=== PATIENT | male | born 1995 | race Caucasian/White ===

== ENCOUNTER 2017-02-20 13:09 | Emergency (ER) | payer SELFPAY ==
[2017-02-20 13:20] VITALS: BP 127/63
--- NOTE | 2017-02-20 14:07 | ERNOTE ---
Lower Extremity HPI - Narrative Date of Service: 02/20/17 - General Lower Extremities Pain: foot: right - patient c/op warts on feet was to see dermatology Time Seen by Provider: 02/20/17 13:43 Source: patient Exam Limitations: no limitations - patient also c/o cough and sore throat - Immun/Allergies/Home Medications Immunizations: IMMUNIZATION HX Immunizations Up to Date Yes History of Influenza Vaccine Yes Hx Pneumococcal Vaccination Yes Allergies/Adverse Reactions: Allergies Allergy/AdvReac Type Severity Reaction Status Date / Time No Known Allergies Allergy Unverified 02/20/17 13:21 Home Medications: HOME MEDICATIONS Amoxicillin Trihydrate [Amoxil] 500 mg PO Q8H #30 capsule 02/20/17 [Last Taken Unknown] - History of Present Illness Narrative: sore throat and cough onset several days ago, warts on bottoom of feet have been ongoing Occurred: yesterday Location of Incident: other - no known injury Method of Injury: Reports: other - no injury Loss of Consciousness: Reports: no loss of consciousness Modifying Factors - (Improves): Reports: rest Modifying Factors - (Worsens): Reports: movement Associated Symptoms: Reports: none Other Injuries: Reports: none Review of Systems - Review of Systems Constitutional: Present: See HPI, fever, chills, fatigue EYE: Present: no symptoms reported ENT: Present: nose congestion, sore throat, throat swelling Respiratory: Present: cough Cardiology: Present: no symptoms reported Gastrointestinal/Abdominal: Present: no symptoms reported Genitourinary: Present: no symptoms reported Musculoskeletal: Present: no symptoms reported Skin: Present: other - plantar warts on both feet Neurological: Present: no symptoms reported Endocrine: Present: no symptoms reported Hematologic/Lymphatic: Present: no symptoms reported Psych: Present: no symptoms reported All Other Systems: All systems neg except as marked - Patient's Past Medical History Patient History - Medical: No pertinent hx Patient History - Cardiac/Respiratory: No pertinent hx Patient History - Cancer: No Hx of Cancer Patient History - Surgical Procedures: No surgical history Patient History - Other: None - Family History Family History:: no untoward family reactions to anesthesia, no familial bleeding tendencies - Social History Living Situations: home Abuse History: No History of abuse Psych History: No pertinent hx Does anyone smoke in the home?: Yes Smoking Status: Current some day smoker Have you smoked in the past 12 months: Yes Do you dip or chew tobacco: No Patient requests Smoking Cessation Consult: No Alcohol Use: occasionally Drug Use: none - Immunizations Immunizations Up to Date: Yes Hx Pneumococcal Vaccination: Yes History of Influenza Vaccine: Yes Physical Exam - Physical Exam General Appearance: Present: mild distress, anxious, thin Eye Exam: Normal inspection: bilateral, PERRL: bilateral, EOMI: bilateral Ears, Nose, Throat: Present: pharyngeal erythema, pharyngeal swelling, tonsillar exudate Neck: Present: normal inspection, nontender Respiratory: Present: no respiratory distress, normal breath sounds, no accessory muscle use, chest nontender, lungs clear Cardiovascular/Chest: Present: regular rate, rhythm, no murmur, normal peripheral pulses Peripheral Pulses: N=norm/S=strong/W=weak/B=bound/A=absent: Carotid (R): Normal , Carotid (L): Normal, Radial (R): Normal, Radial (L): Normal, Femoral (R): Normal Gastrointestinal/Abdominal: Present: normal bowel sounds, nontender, nondistended, soft, no organomegaly Back Exam: Present: normal inspection, normal range of motion, no CVA tenderness , no vertebral tenderness Extremity Exam: Present: other - plantar warts on dorsum of both feet Skin Exam: Present: normal color, warm/dry, skin rash Lymphatic Exam: Present: no adenopathy Pelvic Exam: Present: active bleeding ED Progress - Vital Signs Patient's Vital Signs:: I have reviewed the patient's vital signs. Vital Signs: Vital Signs 02/20/17 13:16 Temperature 36.3 C L Pulse Rate 80 Respiratory 18 Rate Blood Pressure 127/63 O2 Sat by Pulse 98 Oximetry - Progress/Reassessment Chief Complaint: Foot Injury/Pain Progress:: Unchanged - Transfer of Care Expected Disposition: Discharge Departure Clinical Impression: Warts of foot, Pharyngitis - Departure Disposition: Home self-care Condition: Fair Instructions: Strep Throat, [id number] Prescriptions: Amoxicillin Trihydrate [Amoxil] 500 mg PO Q8H #30 capsule
--- OUTSIDE RECORDS SUMMARY | 2017-02-20 14:34 | XMS REPORT | Continuity of Care Document ---
:1995 Author Organization [facility] ([facility]) Address [address] [place] [address] Phone [phone] Care Team Providers Name Role Phone John Delgado Primary Care Provider [phone] Source Comments This disclosure is being made pursuant to the Care Everywhere program, applicable federal and state laws, and may not contain all informaitonavailable regarding this patient.[facility] ([facility]) Active Allergies and Adverse Reactions No Known Allergies Current Medications Prescription Sig. Disp. Refills Start Date End Date Status dextroamphetamine-amph Take 1 tablet (30 60 tablet 0 08/19/2016 Active etamine 30 mg tablet mg total) by mouth 2 times daily. Earliest Fill Date: 08/19/16 Active Problems Problem Noted Date ADHD (attention deficit hyperactivity disorder) 05/22/2016 Elbow strain 05/22/2016 Ringworm 05/22/2016 Mandible fracture 11/30/2012 Most Recent Encounters Date Type Specialty Providers Description 12/24/2016 Telephone [facility] Emergency Dimple Geronimo, Chief Comp: Medicine RN Follow-up 12/22/2016 Hospital Encounter [facility] Emergency Dx: STI (sexually Medicine transmitted infection) (Primary Dx) Immunizations Name Dates Previously Given Next Due DTP 1995 DTP/Hib 1995,1995 Hepatitis B, unspecified 1995,1995,1995 Hib, unspecified 06/23/1996,1995 Influenza, PF 12/02/2012 MMR 03/23/1996 Polio/OPV 1995,1995,1995 Tdap 05/23/2015,04/05/2009 Social History Tobacco Use Types Packs/Day Years Used Date Current Some Day Smoker Cigarettes 0.25 1 Smokeless Tobacco: Former User Quit: 12/27/2012 Alcohol Use Drinks/Week oz/Week Comments Yes socially Last Filed Vital Signs Vital Sign Reading Time Taken Blood Pressure 118/84 12/22/2016 9:30 PM CDT Pulse 76 12/22/2016 9:30 PM CDT Temperature 36.9 C (98.5 F) 12/22/2016 9:30 PM CDT Respiratory Rate 14 12/22/2016 7:45 PM CDT Height 1.854 m (6' 1") 12/22/2016 7:45 PM CDT Weight 95.255 kg (210 lb) 12/22/2016 7:45 PM CDT Body Mass Index 27.71 12/22/2016 7:45 PM CDT Oxygen Saturation 99% 12/22/2016 7:45 PM CDT Plan of Care Health Maintenance Due Date Last Done Comments HPV Vaccine (1 of 3 - Male 3 2006 Dose Series) Meningococcal Vaccine (1 of 2011 1) Lipid Disorder Screening 2013 Varicella Vaccine (1 of 2 - 2013 Adult - No Evidence of Immunity) Pneumococcal Vaccine (1 of 1 2014 - PPSV23) Influenza Vaccine: Seasonal 05/06/2017 12/02/2012 (Season Ended) Td Vaccine 05/23/2025 05/23/2015, Additional history exists 04/05/2009, 1995 Hepatitis B Vaccine Completed 1995, 1995, 1995 MMR Vaccine Completed 03/23/1996 Tdap Vaccine Completed 05/23/2015, 04/05/2009 Results from Last 3 Months [facility] URINALYSIS WITH MICROSCOPY AND REFLEX TO CULTURE (12/22/2016 8:08 PM) Component Value Range [facility] Color, urine Yellow Yellow [facility] Clarity, Urine Cloudy(A) Clear [facility] Spec [place], Urine 1.020 1.015-1.025 [facility] pH, Urine 7.0 5-8 [facility] Glucose, Urine Negative Negative [facility] Ketones, Urine Trace(A) Negative [facility] Bilirubin, Urine Negative Negative [facility] Hemogloblin, Urine Trace-intact(A) Negative [facility] Protein, Urine Negative Negative [facility] Leukocyte Esterase, Urine 3+(A) Negative [facility] Nitrite, Urine Negative Negative [facility] Culture Set Up [facility] RBC, urine 0-2(A) None Seen /hpf [facility] WBC, urine 75-100(A) None Seen, 0-2 [facility] Epithelial Cells None Seen 1-5, None Seen /lpf [facility] Bacteria Few(A) None Seen [facility] Crystals See Below None Seen [facility] Casts None Seen None Seen [facility] Mucus None Seen None Seen [facility] Collection Voided [facility] Microscopic See Below [facility] Amorphous Crystals Few(A) None Seen Specimen Urine [facility] CULTURE, URINE (12/22/2016 8:08 PM) Specimen Urine Narrative Preliminary Report: Culture negative at 1 day. FINAL REPORT: CULTURE POSITIVE FOR NEISSERIA GONORRHOEAE. BETA-LACTAMASE NEGATIVE. CALLED TO WILLAM/NAILA 12/24/16 1400 ADL [facility] GC/CHLAMYDIA BY PCR (12/22/2016 8:08 PM) Component Value Range [facility] Chlamydea by PCR Negative Negative [facility] GC by PCR Positive(A)Comment:This is a corrected result. Negative Previous result was Negative on 12/22/2016 at 2223 CDT Specimen CSF
== END 2017-02-20 14:17 | disposition home or self-care (01) ==
LOC: ER 13:09
DX: B07.9 Viral wart, unspecified (principal); J02.9 Acute pharyngitis, unspecified; Z72.0 Tobacco use